=== PATIENT | female | born 1985 | race Caucasian/White ===

== ENCOUNTER 2016-12-01 09:11 | Outpatient (CLI) | payer BC ==
[~2016-12-01] VITALS: Ht 182.9 cm; Wt 100.2 kg
[~2016-12-01 09:11] MED LIST: ACHD5005 PO; BPR150TCR PO; CEPH500C PO; DCS100C PO; FRS325T PO; IBP600T1 PO; IBP800T PO; ONDAN4ODT PO; ONDN4T PO; OXYC1TAB12 PO; PENI500T PO; PREN1TAB14 PO
[2016-12-01] MEDS ORDERED: LEVO50TA6 PO (09:26)
[2016-12-03] MEDS ORDERED: OXYC-202 PO (12:12)
== END 2016-12-01 09:33 ==
LOC: PREOP 09:11
PROVIDERS: ATTEND Obstetrics & Gynecology
DX: Z01.818 Encounter for other preprocedural examination (principal); N93.8 Other specified abnormal uterine and vaginal bleeding; D64.9 Anemia, unspecified

== ENCOUNTER 2016-12-03 12:01 | Day surgery (SDC) | payer BC ==
[~2016-12-03] VITALS: Ht 182.9 cm; Wt 100.2 kg
[~2016-12-03 12:01] MED LIST changes: +LEVO50TA6 PO
[2016-12-03] MEDS ORDERED: D5 LR IV SOLUTION 1,000 ML IV SCH (12:09)
[2016-12-03] MEDS ORDERED: OXYC-202 PO (12:12)
--- NOTE | 2016-12-03 12:13 | Discharge Instructions ---
Discharge Instructions Discharge Medications New, Converted or Re-Newed RX: RX on Chart Patient Instructions Patient Instructions: as directed Return to The Hospital For: as directed Activity & Diet Discharge Diet: No Restrictions Orders-Post D/C & Referrals Follow Up Appt: Call to make follow up appt. for patient in 2 weeks. Activity: Rest for 24 hours, than as tolerated. Diet: As tolerated-Clear Liquids only if nauseated. May shower or tub bathe as desired. No driving for 24 hours, no alcoholic beverages for 24 hours, and nothing per vagina (no tampons, douching, or intercoUrse) for 2 weeks. Patient to return to the clinic as soon as possible for: Temperature greater than 101F, Severe Pain, Foul discharge from incision or vagina, Excessive Bleeding (more than a period). BETHANY ABRAMS MD Dec 03, 2016 12:13
--- NOTE | 2016-12-03 12:14 | Progress Note-Post Operative ---
Post-Operative Progess Note Surgeon (s)/Magazine Hand (s) Surgeon BETHANY ABRAMS MD Magazine Hand: Raegan Palmer Pre-Operative Diagnosis DUB/menorrhagia Post-Operative Diagnosis same with endometrial polyps and with pathology pending Procedure & Operative Findings Date of Procedure 12/03/16 Procedure Performed/Findings hysteroscopy with directed biopsy and D&C Anesthesia Type GETA Estimated Blood Loss Estimated blood loss (mL): less than 50 mL Specimens/Packing Specimens Removed directed endometrial biopsy and endometrial curettings Packing: none BETHANY ABRAMS MD Dec 03, 2016 12:14
[2016-12-03] MEDS ORDERED: fentaNYL INJECTION 100 MCG/2 ML AMP IVP PRN (12:15)
[2016-12-03] MEDS ORDERED: oxyCODONE/APAP 10/325MG (PERCOCET 10) TABLET PO PRN (12:15)
[2016-12-03] MEDS ORDERED: ESTROGENS CONJ IV 25 MG/5 ML (PREMARIN) VIAL IVP ONE (12:15)
[2016-12-03] MEDS ORDERED: ONDANSETRON 4 MG/2 ML (SDV) Z0FRAN IVP PRN ×2 (12:15→15:15)
[2016-12-03] MEDS ORDERED: KETOROLAC 30 MG/ML VIAL IVP ONE (12:15)
[2016-12-03] MEDS ORDERED: LACTATED RINGERS 1,000 ML IV PRN (12:39)
[2016-12-03] MEDS ORDERED: ceFAZolin 1 GM/NS 50 ML IVPB IV ONE ×2 (12:45)
[2016-12-03] MEDS ORDERED: CATHETER FLUSH 10 ML SYR IV PRN (12:45)
[2016-12-03 12:54] LABS: MEAN PLATELET VOLUME 11.2 FL (7.4-10.4); RED BLOOD COUNT 4.19 10^6/uL (4.35-5.85); RED CELL DISTRIBUTION WIDTH 14.8 % (10.0-14.5); WHITE BLOOD COUNT 5.1 10^3/uL (4.3-11.0)
[2016-12-03 13:00] VITALS: BP 108/71
[2016-12-03] MEDS ORDERED: MIDAZOLAM 2 MG/2 ML (VERSED) VIAL ONE (13:51)
[2016-12-03] MEDS ORDERED: DEXAMETHASONE 10 MG/ML (DECADRON) 1 ML VIAL ONE (13:51)
[2016-12-03] MEDS ORDERED: proPOfol 200 MG/20 ML (DIPRIVAN) VIAL IV ONE (13:51)
[2016-12-03] MEDS ORDERED: SEVOFLURANE (ULTANE) 15 ML INHAL SOLN ONE (13:51)
[2016-12-03] MEDS ORDERED: LIDOCAINE PF 2% 5 ML (XYLOCAINE) VIAL ONE (13:51)
[2016-12-03] MEDS ORDERED: ONDANSETRON 4 MG/2 ML (SDV) Z0FRAN ONE ×2 (13:51→14:11)
[2016-12-03] MEDS ORDERED: LACTATED RINGERS 1,000 ML IV ONE (13:51)
[2016-12-03] MEDS ORDERED: fentaNYL INJECTION 100 MCG/2 ML AMP ONE (13:52)
[2016-12-03] MEDS ORDERED: ESTROGENS CONJ IV 25 MG/5 ML (PREMARIN) VIAL ONE (14:11)
[2016-12-03] MEDS ORDERED: morphine INJ 10 MG/ML 1ML (SYR OR VIAL) ONE (14:11)
[2016-12-03] MEDS ORDERED: WATER (STERILE) FOR INJECTION 10 ML ONE (14:11)
[2016-12-03] MEDS ORDERED: KETOROLAC 30 MG/ML VIAL ONE (14:11)
--- NOTE | 2016-12-03 14:41 | Progress Note-Pre Operative ---
Pre-Operative Progress Note H&P Reviewed The H&P was reviewed, patient examined and no changes noted. Date Seen by Provider: Dec 03, 2016 Time Seen by Provider: 14:41 Date H&P Reviewed: Dec 03, 2016 Time H&P Reviewed: 14:41 Pre-Operative Diagnosis: menorrhagia/DUB/intrauterine mass BETHANY ABRAMS MD Dec 03, 2016 2:41 pm
[2016-12-03] MEDS ORDERED: morphine INJ 10 MG/ML 1ML (SYR OR VIAL) IVP PRN (15:15)
[2016-12-03] MEDS ORDERED: MEPERIDINE (DEMEROL) INJ 50 MG/ML IVP PRN (15:15)
[2016-12-03] MEDS ORDERED: MEPERIDINE (DEMEROL) INJ 50 MG/ML ONE (15:16)
[2016-12-03 16:15] VITALS: BP 108/79
[2016-12-03 16:45] VITALS: BP 93/66
[2016-12-03 17:13] VITALS: BP 112/76
--- NOTE | 2016-12-04 07:34 | OPERATIVE REPORT ---
DATE OF SERVICE: 12/03/2016 PREOPERATIVE DIAGNOSIS: Dysfunctional uterine bleeding with ultrasound finding of intrauterine mass. POSTOPERATIVE DIAGNOSIS: Dysfunctional uterine bleeding with ultrasound finding of intrauterine mass. OPERATIVE PROCEDURE: Hysteroscopy with directed biopsy and D and C. SURGEON: Dr. Bethany Cabrera OPERATIVE DESCRIPTION: With the patient in the supine position under satisfactory general anesthesia, she was repositioned in the dorsal lithotomy position in the [facility] and prepped and draped in the usual fashion for vaginal surgery. The urinary bladder was emptied with a straight catheter. A weighted speculum placed on the posterior fornix in the vagina. Cervix exposed and grasped anteriorly with a single tooth tenaculum. There was an IUD string present at the cervical os. The patient had a copper T IUD in place. This was removed gently. The uterus was then sounded to 9.5 cm uterus down to cervix. Then serially dilated with Koffi dilators to accommodate a hysteroscope which was introduced. Then using LR as a distending medium, the endometrial cavity was examined. There were numerous polypoid masses, call center representative biopsy was taken by removal of one of the larger of the specimens. That was sent to pathology as directed biopsy of polypoid intrauterine mass. The endometrial cavity was then sharply curettaged in all 4 quadrants to good uterine cry with removal of a fairly moderate amount of tissue. The hysteroscope was reintroduced. There was still some tissue remaining. This was removed by repeating the curettage. The hysteroscope was reintroduced. The endometrial cavity was examined and there was no remaining abnormal pathology. There was no significant bleeding. The hysteroscope was removed. The copper T IUD was washed in sterile saline, was positioned in an introducer and then the IUD replaced in the endometrial cavity in the usual manner. The IUD strings were approximately 1 cm in length after placement of the IUD. The tenaculum was removed from the cervix. There was some bleeding from one of the puncture sites. This was touched with silver nitrate to effect hemostasis. With hemostasis assured, sponge and needle counts correct and no bleeding the procedure was terminated. Estimated blood loss was minimal. The patient tolerated the procedure well and was uneventfully awakened from general anesthesia and transferred to recovery room in stable condition with plans for discharge home PAR. A total of 700 mL of distending medium was used, 600 mL was recovered and another almost 100 mL was noted on the floor. The patient was transferred to the recovery room in stable condition. Job ID: [id number] DocumentID: [id number] Dictated Date: 12/03/2016 15:18:58 Public Relations Representative Date: 12/04/2016 07:34:23 Dictated By: BETHANY CABRERA MD
== END 2016-12-03 17:13 | disposition home or self-care (01) ==
LOC: SDC 12:01
PROVIDERS: ATTEND Obstetrics & Gynecology
DX: N93.8 Other specified abnormal uterine and vaginal bleeding (principal); E03.9 Hypothyroidism, unspecified; Z79.899 Other long term (current) drug therapy
CPT/HCPCS: 36415; 84703; 85027; 87081

== ENCOUNTER 2018-10-07 20:01 | Outpatient (CLI) | payer BC | END 2018-10-08 06:46 | disposition home or self-care (01) | LOC: SLEEP 20:01 | DX: G47.10 Hypersomnia, unspecified (principal); G47.36 Sleep related hypoventilation in conditions classified elsewhere; R51 Headache | CPT/HCPCS: 95810 ==

== ENCOUNTER → 2019-06-12 | Outpatient (CLI) | payer BC ==
--- NOTE | 2019-06-12 12:59 | Diagnostic Imaging Report ---
PROCEDURE: US Thyroid. TECHNIQUE: Multiple real-time grayscale images were obtained of the thyroid in various projections. INDICATION: Nodule There are no prior studies available for comparison Within the left lobe of the thyroid there is a 3.5 x 2.8 x 2.6 cm fairly well-circumscribed hypoechoic mass with punctate areas of echogenicity. There are also septations within this lesion. This lesion is not clearly taller than it is wide. There may be punctate calcifications within this lesion. I would rate this is a TI-RADS 4. I would recommend an ultrasound-guided biopsy be performed. There is also a subcentimeter 0.0 x 0.0 x 0.6 cm hypoechoic lesion along the posterior aspect of the right lobe of the thyroid. It is possible that this could represent a parathyroid adenoma. If there is clinical concern regarding a parathyroid adenoma, then a nuclear medicine parathyroid scan would be recommended. There is no other focal mass involving the thyroid gland. The thyroid gland is enlarged with the right lobe measuring 5.2 x 2.1 x 1.9 cm, left lobe estimated 5.6 x 3.0 x 2.8 cm (normal gland size 4-5 x 2 x 2 cm or less). IMPRESSION: 1. There is a 3.5 x 2.8 x 2.6 cm complex hypoechoic nodule in the left lobe of the thyroid. This has a TI-RADS category 4. This finding is of uncertain etiology but worrisome for malignancy. Ultrasound-guided biopsy would be recommended. 2. The small hypoechoic nodule along the posterior aspect of the right lobe of thyroid could represent a parathyroid adenoma. Additional considerations as above. 3. The thyroid gland is enlarged. Dictated by: Dictated on workstation # [id number]
== END ==
LOC: RAD 10:22
PROVIDERS: ATTEND Obstetrics & Gynecology
DX: E04.1 Nontoxic single thyroid nodule (principal)
CPT/HCPCS: 76536

== ENCOUNTER → 2019-07-12 | Outpatient (CLI) | payer BC | LOC: CARD 10:35 | PROVIDERS: ATTEND Obstetrics & Gynecology | DX: E04.1 Nontoxic single thyroid nodule (principal) ==

== ENCOUNTER → 2019-08-06 | Outpatient (CLI) | payer BC ==
[~2019-08-06] VITALS: Ht 182.9 cm; Wt 100.0 kg
[~2019-08-06] MED LIST changes: +LIDOCAINE 1% INJ 20 ML 20 ML VIAL INJ ONE; +LIDOCAINE 1% INJ 20 ML 20 ML VIAL ONE
--- NOTE | 2019-08-06 09:32 | Diagnostic Imaging Report ---
INDICATION: Left thyroid nodule. Patient presents for ultrasound-guided fine needle aspiration. FINDINGS: Patient was brought to the procedure room and placed on the table in the supine position. The skin of the left neck was prepped and draped in usual sterile fashion. Ultrasound imaging over the left neck was performed to evaluate appropriate entry site. A 25-gauge needle was advanced into the mixed complex cystic and solid mass left lobe of thyroid. Complex fluid was aspirated. Approximately 2 mL of yellowish fluid was removed. This will be sent to cytology. Then, 3 additional passes were made with 25-gauge needles in place with its tips along the more solid margins of the lesion and finally needle aspiration was performed. The needle was removed and hemostasis was obtained. Patient tolerated the procedure well and left the department in stable condition. IMPRESSION: Left thyroid nodule fluid aspiration as well as fine needle aspiration, utilizing sonographic guidance. Pathology results are currently pending. Dictated by: Dictated on workstation # [id number]
== END ==
LOC: RAD 08:19
PROVIDERS: ATTEND Otolaryngology Otolaryngology/Facial Plastic Surgery
DX: E04.1 Nontoxic single thyroid nodule (principal)

== ENCOUNTER → 2020-01-11 | Outpatient (CLI) | payer BC ==
[~2020-01-11] MED LIST changes: -LIDOCAINE 1% INJ 20 ML 20 ML VIAL INJ ONE; -LIDOCAINE 1% INJ 20 ML 20 ML VIAL ONE
--- NOTE | 2020-01-11 09:30 | Diagnostic Imaging Report ---
PROCEDURE: US Thyroid. TECHNIQUE: Multiple real-time grayscale images were obtained of the thyroid in various projections. INDICATION: Thyroid nodule, follow-up. Correlation is made with prior thyroid ultrasound from 06/12/2019. Right lobe of thyroid measures 5.3 x 1.7 x 1.6 cm and left lobe measures 5.6 x 3.0 x 3.1 cm. Isthmus is 4 mm in thickness. Both thyroid lobes are heterogeneous. Probable parathyroid nodule on the right previously seen measures 6 mm x 7 mm x 7 mm compared with 8 mm x 8 mm x 6 mm on prior. The complex mixed cystic and solid mass left lobe of the thyroid measures 3.4 x 3.0 x 2.8 cm. This compares with 3.5 x 2.8 x 2.6 cm on prior exam. No new thyroid mass is detected. IMPRESSION: Stable thyroid ultrasound when compared with exam from 06/12/2019. Dictated by: Dictated on workstation # [id number]
== END ==
LOC: RAD 08:00
PROVIDERS: ATTEND Otolaryngology Otolaryngology/Facial Plastic Surgery
DX: E04.1 Nontoxic single thyroid nodule (principal)
CPT/HCPCS: 76536

== ENCOUNTER 2020-10-22 13:08 | Outpatient (RCR) | payer BC ==
[2020-10-13 12:49] VITALS: BP 116/82
[2020-10-13] MEDS: IRON SUCROSE 200 MG/10 ML (VENOFER) VIAL IV SCH (13:29)
[2020-10-15 13:00] VITALS: BP 98/72
[2020-10-15] MEDS: IRON SUCROSE 200 MG/10 ML (VENOFER) VIAL IV SCH (13:39)
[2020-10-17] MEDS: IRON SUCROSE 200 MG/10 ML (VENOFER) VIAL IV SCH (08:57)
[2020-10-17 09:45] VITALS: BP 99/67
[2020-10-20] MEDS: IRON SUCROSE 200 MG/10 ML (VENOFER) VIAL IV SCH (13:30)
[2020-10-20 14:08] VITALS: BP 110/87
[~2020-10-22] VITALS: Ht 172 cm; Wt 100.0 kg
[2020-10-22 13:25] VITALS: BP 122/73
[2020-10-22] MEDS: IRON SUCROSE 200 MG/10 ML (VENOFER) VIAL IV SCH (13:31)
[2021-01-09] MEDS ORDERED: MONT10TA32 PO (11:48)
[2021-01-09] MEDS ORDERED: PANT40TA52 PO (11:48)
[2021-01-09] MEDS ORDERED: ALPR0.5T7 PO (11:48)
[2021-01-09] MEDS ORDERED: LISD50CA PO (11:48)
[2021-01-09] MEDS ORDERED: LEVO1CAP8 PO (11:48)
[2021-01-09] MEDS ORDERED: BUPR300T98 PO (11:48)
== END 2021-01-11 | disposition home or self-care (01) ==
LOC: SDC 13:08
PROVIDERS: ATTEND Nurse Practitioner Family
DX: D50.9 Iron deficiency anemia, unspecified (principal)
CPT/HCPCS: 96365

== ENCOUNTER 2021-01-09 06:35 | Outpatient (CLI) | payer BC ==
[~2021-01-09] VITALS: Ht 182.9 cm; Wt 104.1 kg
[2021-01-09] MEDS ORDERED: MONT10TA32 PO (11:48)
[2021-01-09] MEDS ORDERED: PANT40TA52 PO (11:48)
[2021-01-09] MEDS ORDERED: BUPR300T98 PO (11:48)
[2021-01-09] MEDS ORDERED: LISD50CA PO (11:48)
[2021-01-09] MEDS ORDERED: ALPR0.5T7 PO (11:48)
[2021-01-09] MEDS ORDERED: LEVO1CAP8 PO (11:48)
== END 2021-01-09 11:52 | disposition home or self-care (01) ==
LOC: PREOP 06:35
PROVIDERS: ATTEND Obstetrics & Gynecology
DX: Z01.818 Encounter for other preprocedural examination (principal)

== ENCOUNTER 2021-01-16 08:43 | Day surgery (SDC) | payer BC ==
[2021-01-16] VITALS (11 sets, daily range): BP systolic 106–135; BP diastolic 65–96
[~2021-01-16] VITALS: Ht 182.9 cm; Wt 104.1 kg
--- NOTE | 2021-01-16 07:31 | Progress Note-Pre Operative ---
Pre-Operative Progress Note H&P Reviewed The H&P was reviewed, patient examined and no changes noted. Date Seen by Provider: Jan 16, 2021 Time Seen by Provider: 09:00 Date H&P Reviewed: Jan 16, 2021 Time H&P Reviewed: 09:00 Pre-Operative Diagnosis: menorrhagia BETHANY ABRAMS MD Jan 16, 2021 07:31
--- NOTE | 2021-01-16 07:32 | Progress Note-Post Operative ---
Post-Operative Progess Note Surgeon (s)/Lay Health Advocate (s) Surgeon BETHANY ABRAMS MD Lay Health Advocate: Brien Palmer Pre-Operative Diagnosis DUB/menorrhagia Post-Operative Diagnosis Same Procedure & Operative Findings Date of Procedure 01/16/21 Procedure Performed/Findings Total laparoscopic hysterectomy with bilateral salpingectomy Anesthesia Type General Estimated Blood Loss Estimated blood loss (mL): min Specimens/Packing Specimens Removed Uterus and fallopian tubes BETHANY ABRAMS MD Jan 16, 2021 07:32
--- NOTE | 2021-01-16 07:37 | Discharge Inst-Surgical ---
Discharge Inst-Surgical Depart Medication/Instructions New, Converted or Re-Newed RX: RX on Chart Consults/Follow Up Patient Instructions: As directed Orders & Referrals Follow Up Appt: Return to clinic on Tuesday, January 19, 2021 at 9:30 AM for staple removal Call to make follow up appt. for patient For postop appointment prior to February 06, 2021. Activity: Rest for 24 hours, than as tolerated. Wound Care: May remove Band-Aid tomorrow. Replace as desired. Keep incisions clean and dry. Wash daily with soap and water. Diet: As tolerated may shower or tub bathe as desired. No driving for 24 hours, no alcoholic beverages for 24 hours, and nothing per vagina (no tampons, douching, or intercourse) for 8 weeks. Patient to return to the clinic as soon as possible for: Temperature greater than 101F, Severe Pain, Foul discharge from incision or vagina, Excessive Bleeding (more than a period). Activity Activity as Tolerated: No Diet Discharge Diet: No Restrictions BETHANY ABRAMS MD Jan 16, 2021 07:37
[~2021-01-16 08:43] MED LIST changes: +ALPR0.5T7 PO; +BUPR300T98 PO; +D5 LR IV SOLUTION 1,000 ML IV SCH; +DOCU-143 PO; +IBUP-1780 PO; +KETOROLAC 30 MG/ML VIAL IVP SCH; +LEVO1CAP8 PO; +LISD50CA PO; +MONT10TA32 PO; +ONDANSETRON 4 MG/2 ML (SDV) Z0FRAN IVP PRN; +OXYC1TAB87 PO; +PANT40TA52 PO; +PROMETHAZINE INJ 25 MG/ML (PHENERGAN) AMP IM PRN; +fentaNYL INJ 100 MCG/2 ML AMP IVP PRN; +oxyCODONE/APAP 5/325MG (PERCOCET 5) TABLET PO PRN
[2021-01-16] MEDS ORDERED: DOCUSATE SODIUM 100 MG (COLACE) CAP PO SCH (09:00)
[2021-01-16] MEDS: LACTATED RINGERS 1,000 ML IV PRN ×2 (09:32→12:56)
[2021-01-16] MEDS ORDERED: ceFAZolin INJECTION 1,000 MG ONE (09:39)
[2021-01-16 09:41] LABS: BASOPHILS # (AUTO) 0.1 10^3/uL (0.0-0.1); BASOPHILS % (AUTO) 1 % (0-10); EOSINOPHILS # (AUTO) 0.1 10^3/uL (0.0-0.3); EOSINOPHILS % (AUTO) 2 % (0-10); HEMATOCRIT 37 % (35-52); LYMPHOCYTES # (AUTO) 1.6 10^3/uL (1.0-4.0); LYMPHOCYTES % (AUTO) 22 % (12-44); MEAN CORPUSCULAR HEMOGLOBIN 30 pg (25-34); MEAN CORPUSCULAR HGB CONC 32 g/dL (32-36); MEAN CORPUSCULAR VOLUME 92 fL (80-99); MEAN PLATELET VOLUME 10.3 fL (9.0-12.2); MONOCYTES # (AUTO) 0.6 10^3/uL (0.0-1.0); MONOCYTES % (AUTO) 8 % (0-12); NEUTROPHILS % (AUTO) 67 % (42-75); PLATELET COUNT 271 10^3/uL (130-400); WHITE BLOOD COUNT 7.4 10^3/uL (4.3-11.0)
[2021-01-16] MEDS ORDERED: WATER (STERILE) FOR INJECTION 10 ML ONE (09:44)
[2021-01-16] MEDS ORDERED: ceFAZolin INJECTION 1,000 MG in WATER (STERILE) FOR INJECTION 10 ML IV ONE (09:45)
[2021-01-16] MEDS ORDERED: LIDOCAINE/EPI 1%-1:100,000 (XYLOCAINE) 20ML ONE (10:52)
[2021-01-16] MEDS ORDERED: proPOfol 200 MG/20 ML (DIPRIVAN) VIAL IV ONE (12:13)
[2021-01-16] MEDS ORDERED: MIDAZOLAM 2 MG/2 ML (VERSED) VIAL ONE (12:13)
[2021-01-16] MEDS ORDERED: LIDOCAINE PF 2% 5 ML (XYLOCAINE) VIAL ONE (12:13)
[2021-01-16] MEDS ORDERED: ONDANSETRON 4 MG/2 ML (SDV) Z0FRAN ONE (12:13)
[2021-01-16] MEDS ORDERED: SEVOFLURANE (ULTANE) 15 ML INHAL SOLN ONE ×2 (12:13→13:13)
[2021-01-16] MEDS ORDERED: fentaNYL INJ 100 MCG/2 ML AMP ONE ×2 (12:13→12:23)
[2021-01-16] MEDS ORDERED: GLYCOPYRROLATE 0.2 MG/ML (ROBINUL) 2 ML VIAL ONE (13:36)
[2021-01-16] MEDS ORDERED: NEOSTIGMINE 3 MG/3 ML VIAL ONE (13:36)
[2021-01-16] MEDS ORDERED: ONDANSETRON 4 MG/2 ML (SDV) Z0FRAN IVP PRN (14:00)
[2021-01-16] MEDS ORDERED: fentaNYL INJ 100 MCG/2 ML AMP IVP ONE (14:00)
[2021-01-16] MEDS ORDERED: morphine INJ 10 MG/ML 1ML (SYR OR VIAL) IVP ONE (14:00)
[2021-01-16] MEDS ORDERED: MEPERIDINE (DEMEROL) INJ 50 MG/ML IVP ONE (14:00)
[2021-01-16] MEDS ORDERED: KETOROLAC 30 MG/ML VIAL ONE (14:25)
[2021-01-16] MEDS ORDERED: D5 LR IV SOLUTION 1,000 ML IV ONE (15:56)
--- NOTE | 2021-01-16 18:40 | OPERATIVE REPORT ---
DATE OF SERVICE: 01/16/2021 PREOPERATIVE DIAGNOSES: Menorrhagia/abnormal uterine bleeding and endometrial polyps. POSTOPERATIVE DIAGNOSES: Menorrhagia/abnormal uterine bleeding and endometrial polyps. OPERATIVE PROCEDURE: Total laparoscopic hysterectomy with bilateral salpingectomy. OPERATIVE DESCRIPTION: With the patient in the supine position under satisfactory general anesthesia, she was repositioned in dorsal lithotomy position in the [facility] and prepped and draped in the usual fashion for abdominal and vaginal surgery. Weighted speculum placed in posterior fornix of vagina, cervix exposed and grasped anteriorly with single tooth tenaculum. Uterus sounded to 14 cm with uterine sound. Cervix was then serially dilated with Koffi dilators to accommodate a Kimberley II manipulator was placed using a 6 mm x 8 cm uterine probe and a 30 mm colpotomy ring. Sutures of #1 Vicryl placed at 3 and 9 o'clock position of the cervix to affix the uterus to the manipulator. The tenaculum and speculum were removed. Barry catheter was placed in the urinary bladder and the patient brought in low dorsal lithotomy position. A 12 mm incision was made 10 cm superior to the umbilicus. Veress needle was placed through that incision into the abdominal cavity and correct placement confirmed with water drop test. The abdomen was insufflated with 2.4 liters of carbon dioxide. Then, Veress needle was removed and a 12 mm Optiview laparoscopic port placed. Abdominal wall was transilluminated. Ports of 8 mm were placed 8 cm lateral to the umbilicus at a level approximately 2 cm above the umbilicus. The patient was placed in Trendelenburg allowing the bowel spill out of the pelvis. The da Kolby column was advanced on the patient, docked and operative instrument placed in right and left lateral ports and I retired to the da Kolby console. At the console using the vessel sealer on the right, bipolar fenestrated grasper on the left, the pelvis was first examined. There were extensive adhesions in the left pelvis from the omentum adherent to the terminus of the left pericolic gutter and obstructing access to the left tube and ovary. These were taken down sharply, bluntly and with the vessel sealer. With that freed, the omentum was brought up out of the way and both tubes and ovaries could be inspected. There was a corpus luteal cyst on the left ovary. The right ovary also was normal. Both fallopian tubes were normal. The uterus was large and mottled in appearance. The laparoscope was rotated. The appendix could not be identified due to the extensive coverage of the bowel and omentum. The laparoscope was brought back to the pelvis. The right fallopian tube was grasped and elevated. The mesosalpinx was clamped, cauterized and divided that was continued stepwise across the uteroovarian pedicle was clamped, cauterized and divided in the same manner and the dissection was carried across the round ligament down the broad ligament to the cardinal ligament. Same procedure performed on the left, allowing for conservation of both ovaries and removal of both fallopian tubes. Anterior lower uterine segment peritoneum was divided with monopolar katlin allowing the bladder to be dissected down off the lower uterine segment. Colpotomy incision was started at 12 o'clock position onto the colpotomy ring. That incision was continued circumferentially until the entire colpotomy ring was exposed and then the uterus with the tubes still attached was extracted through the vagina. The vaginal cuff was closed with a single V-Loc barbed suture in the usual manner. Good hemostasis and good reapproximation was achieved. Pelvis was examined for hemostasis. There was a little bit of oozing on the right peritoneal reflection over the dissection. This was touched with cautery to effect hemostasis. With hemostasis assured, both ureters seemed to peristalse. The procedure was terminated. The operative instruments were removed under direct vision as were the ports. The abdomen was evacuated of insufflating gas in the process of removing the ports. The skin incisions were stapled after the fascia at the supraumbilical incision was closed with [id number] suture of 2-0 Vicryl. Sponge and needle counts were correct at this point. Speculum was placed in the vagina. The vaginal cuff was examined. It was completely reapproximated and completely hemostatic. Now again with sponge and needle counts correct, hemostasis assured. Blood loss minimal. The patient was uneventfully awakened from her general anesthesia and transferred to recovery in stable condition. Job ID: [id number] DocumentID: [id number] Dictated Date: 01/16/2021 13:33:12 Asian Art Curator Date: 01/16/2021 18:40:27 Dictated By: BETHANY ABRAMS MD
[2021-01-17] MEDS ORDERED: DOCUSATE SODIUM 100 MG (COLACE) CAP PO SCH (09:00)
--- NOTE | 2021-01-17 09:47 | Anesthesia-General Post-Op ---
General Patient Condition Mental Status/LOC: Same as Preop Cardiovascular: Satisfactory Nausea/Vomiting: Absent Respiratory: Satisfactory Pain: Controlled Complications: Absent Post Op Complications Complications None Follow Up Care/Instructions Patient Instructions None needed. Anesthesia/Patient Condition Patient Condition Patient is doing well, no complaints, stable vital signs, no apparent adverse anesthesia problems. No complications reported per nursing. D/C home per [facility] Criteria: Yes SHAYY SHARP CRNA Jan 17, 2021 09:47
[2021-01-21] MEDS ORDERED: IBUPROFEN 800 MG (MOTRIN) TAB PO SCH (07:45)
== END 2021-01-16 21:30 | disposition home or self-care (01) ==
LOC: SDC 08:43 → WS 15:31 → SDC 21:30
PROVIDERS: ATTEND Obstetrics & Gynecology
DX: N83.12 Corpus luteum cyst of left ovary (principal); N85.8 Other specified noninflammatory disorders of uterus; N83.8 Other noninflammatory disorders of ovary, fallopian tube and broad ligament; K66.0 Peritoneal adhesions (postprocedural) (postinfection); E04.9 Nontoxic goiter, unspecified; F32.A Depression, unspecified; D64.9 Anemia, unspecified; G47.30 Sleep apnea, unspecified; K21.9 Gastro-esophageal reflux disease without esophagitis; Z79.890 Hormone replacement therapy; Z79.899 Other long term (current) drug therapy; Z11.2 Encounter for screening for other bacterial diseases
CPT/HCPCS: 36415; 84703; 85025; 87081; 94664

== ENCOUNTER → 2023-01-28 | Outpatient (CLI) | payer BC ==
[~2023-01-28] VITALS: Ht 182.9 cm; Wt 109.5 kg
[~2023-01-28] MED LIST changes: -D5 LR IV SOLUTION 1,000 ML IV SCH; +IBUP-1773 PO; -KETOROLAC 30 MG/ML VIAL IVP SCH; +MONT-40 PO; -MONT10TA32 PO; -ONDANSETRON 4 MG/2 ML (SDV) Z0FRAN IVP PRN; -PROMETHAZINE INJ 25 MG/ML (PHENERGAN) AMP IM PRN; +VILA10TA2 PO; -fentaNYL INJ 100 MCG/2 ML AMP IVP PRN; -oxyCODONE/APAP 5/325MG (PERCOCET 5) TABLET PO PRN
== END | disposition home or self-care (01) ==
LOC: PREOP 10:00
PROVIDERS: ATTEND Obstetrics & Gynecology
DX: Z01.818 Encounter for other preprocedural examination (principal)

== ENCOUNTER 2023-02-01 09:21 | Day surgery (SDC) | payer BC ==
[~2023-02-01] VITALS: Ht 182.9 cm; Wt 109.5 kg
[2023-02-01] VITALS (11 sets, daily range): BP systolic 103–131; BP diastolic 68–99
[~2023-02-01 09:21] MED LIST changes: -IBUP-1773 PO
[2023-02-01] MEDS ORDERED: BUPIVACAINE 0.25% 30 ML VIAL ONE (09:42)
[2023-02-01] MEDS ORDERED: NS (IVPB) 50 ML 50 ML ONE (10:07)
[2023-02-01] MEDS ORDERED: ceFAZolin INJECTION 1,000 MG ONE (10:07)
[2023-02-01] MEDS ORDERED: BUPIVACAINE 0.25% 30 ML VIAL INJ ONE (10:14)
[2023-02-01] MEDS ORDERED: MIDAZOLAM INJ 2 MG/2 ML VIAL ONE (10:23)
[2023-02-01] MEDS ORDERED: fentaNYL INJECTION 100 MCG/2 ML VIAL ONE (10:23)
--- NOTE | 2023-02-01 10:31 | Progress Note-Pre Operative ---
Pre-Operative Progress Note Date of Available H&P: Feb 01, 2023 Date H&P Reviewed: Feb 01, 2023 Time H&P Reviewed: 10:15 History & Physical: H&P Reviewed, Patient Examed, No changes noted Pre-Operative Diagnosis: Enlarged bartholins gland mass GHADA KINGSLEY DO Feb 01, 2023 10:31
[2023-02-01 10:34] LABS: BASOPHILS # (AUTO) 0.1 10^3/uL (0.0-0.1); BASOPHILS % (AUTO) 1 % (0-10); EOSINOPHILS # (AUTO) 0.2 10^3/uL (0.0-0.3); EOSINOPHILS % (AUTO) 4 % (0-10); HEMATOCRIT 37 % (35-52); HEMOGLOBIN 11.8 g/dL (11.5-16.0); LYMPHOCYTES # (AUTO) 1.6 10^3/uL (1.0-4.0); LYMPHOCYTES % (AUTO) 26 % (12-44); MEAN CORPUSCULAR HEMOGLOBIN 28 pg (25-34); MEAN CORPUSCULAR HGB CONC 32 g/dL (32-36); MEAN CORPUSCULAR VOLUME 87 fL (80-99); MEAN PLATELET VOLUME 10.2 fL (9.0-12.2); MONOCYTES # (AUTO) 0.4 10^3/uL (0.0-1.0); MONOCYTES % (AUTO) 7 % (0-12); NEUTROPHILS # (AUTO) 3.8 10^3/uL (1.8-7.8); NEUTROPHILS % (AUTO) 62 % (42-75); PLATELET COUNT 300 10^3/uL (130-400); WHITE BLOOD COUNT 6.1 10^3/uL (4.3-11.0)
--- NOTE | 2023-02-01 10:34 | Discharge Inst-Women's Service ---
Discharge Inst-Women's Serv Depart Medication/Instructions New, Converted or Re-Newed RX: Transmitted to Pharmacy Problems Reviewed?: Yes Consults/Follow Up Additional Follow Up: Yes Orders/Referrals Dr. Kingsley in 2 weeks Activity Activity: Activity as Tolerated Driving Instructions: No Driving for 1 Week NO SMOKING: NO SMOKING Nothing Inside Vagina: No Douching, No [place], No Tampons Diet Discharge Diet: No Restrictions Symptoms to Report to : Swelling Increased, Pain Increased, Fever Over 101 Degrees F, Vaginal Bleeding Increase, Questions/Concerns For Any Problems or Questions: Contact Your Physician GHADA KINGSLEY DO Feb 01, 2023 10:34
[2023-02-01] MEDS ORDERED: ACHD5005 PO (10:35)
[2023-02-01] MEDS ORDERED: DOCU-143 PO (10:35)
[2023-02-01] MEDS ORDERED: IBUP-1773 PO (10:35)
[2023-02-01] MEDS ORDERED: ONDANSETRON INJECTION 4 MG/2 ML (SDV) IVP PRN (10:45)
[2023-02-01] MEDS ORDERED: HYDROcodone/ACETAMINOPHEN 5 MG/325 MG TABLET PO PRN (10:45)
[2023-02-01] MEDS ORDERED: KETOROLAC INJ 30 MG/ML VIAL IVP ONE (10:45)
[2023-02-01] MEDS ORDERED: LACTATED RINGERS 1,000 ML 1,000 ML IV PRN (10:45)
[2023-02-01] MEDS ORDERED: D5 LR 1,000 ML IV SOLN 1,000 ML IV SCH (10:45)
[2023-02-01] MEDS ORDERED: ceFAZolin INJECTION 1,000 MG in NS (IVPB) 50 ML 50 ML IV ONE (10:45)
[2023-02-01] MEDS ORDERED: SEVOFLURANE (ULTANE) 15 ML INHAL SOLN ONE (11:06)
[2023-02-01] MEDS ORDERED: ONDANSETRON INJECTION 4 MG/2 ML (SDV) ONE (11:06)
[2023-02-01] MEDS ORDERED: proPOfol INJECTION 200 MG/20 ML VIAL IV ONE (11:06)
[2023-02-01] MEDS ORDERED: KETOROLAC INJ 30 MG/ML VIAL ONE (11:06)
[2023-02-01] MEDS ORDERED: LIDOCAINE PF 2% 5 ML VIAL ONE (11:06)
[2023-02-01] MEDS ORDERED: dexAMETHasone INJ 10 MG/ML 1 ML VIAL ONE (11:12)
[2023-02-01] MEDS ORDERED: fentaNYL INJECTION 100 MCG/2 ML VIAL IVP ONE (11:30)
[2023-02-01] MEDS ORDERED: morphine INJ 10 MG/ML 1ML (SYR OR VIAL) IVP ONE (11:30)
--- NOTE | 2023-02-01 11:31 | Anesthesia-General Post-Op ---
General Patient Condition Mental Status/LOC: Same as Preop Cardiovascular: Satisfactory Nausea/Vomiting: Absent Respiratory: Satisfactory Pain: Controlled Complications: Absent Post Op Complications Complications None Follow Up Care/Instructions Patient Instructions None needed. Anesthesia/Patient Condition Patient Condition Patient is doing well, no complaints, stable vital signs, no apparent adverse anesthesia problems. No complications reported per nursing. NASIR NOVOA CRNA Feb 01, 2023 11:31
[2023-02-01] MEDS ORDERED: HYDROcodone/ACETAMINOPHEN 5 MG/325 MG TABLET ONE (12:25)
--- NOTE | 2023-02-01 21:51 | OPERATIVE REPORT ---
DATE OF SERVICE: 02/01/2023 PREOPERATIVE DIAGNOSES: A 37-year-old female with left Bartholin's cyst. POSTOPERATIVE DIAGNOSES: A 37-year-old female with left Bartholin's cyst. PROCEDURE: Marsupialization of left Bartholin gland. SURGEON: Asim Dolan DO ANESTHESIA: LMA general. EBL: 50 mL. URINE OUTPUT: 100 mL drained at the end of the procedure. FLUIDS: 800 mL lactated Ringer's solution. FINDINGS: A large left Bartholin's gland that was filled with old blood clot and dark brown thick material. SPECIMEN SENT: Bartholin gland cyst wall. INDICATIONS FOR PROCEDURE: This patient was a referral to my office from [facility] for a left-sided Bartholin gland. They had attempted to lancet and open up in the office without any success. I discussed with the patient in the office excision or marsupialization of the gland itself. After that was fluid filled or not a solid mass so we could empty the cyst open and perform what was called a marsupialization, which we definitively solve the problem of the Bartholin's gland cyst recurrence and alleviate her symptoms as it heal. Risk of procedure discussed with the patient in detail including risk of anesthesia and postoperative recovery timeframe and expectations. Everything was discussed with the patient in detail. She was agreeable to proceed. Consent was obtained. The patient was taken to the operating room. OPERATIVE DESCRIPTION IN DETAIL: Once in the operating room, anesthesia was administered and found to be adequate, was placed in dorsal lithotomy position, prepped and draped in normal sterile fashion. A timeout was performed. Anesthesia was tested. I then injected the subcutaneous tissue around the Bartholin's cyst using 2% lidocaine with epinephrine. I make an elliptical incision approximately 3 cm long around the mucocutaneous junction margin of the Bartholin's gland cyst. In the process of doing this, I opened up the cyst wall and excised that elliptical incision margin of the cyst wall as well. I then used 3-0 Vicryl suture in interrupted fashion and sutured to the cyst wall open to the cutaneous border. This was done circumferentially around the entire opening after which, any bleeding was made hemostatic using a Bovie cautery. At the end of the procedure, there was no active bleeding noted. Lap and sponge counts were correct at the end of the procedure. Instrument counts correct as well. The patient tolerated the procedure well and was taken to recovery in stable condition. Job ID: [id number] DocumentID: [id number] Dictated Date: 02/01/2023 12:14:43 Biometrician Date: 02/01/2023 21:49:00 Dictated By: DO JONAS KUNZ
== END 2023-02-01 13:15 | disposition home or self-care (01) ==
LOC: SDC 09:21
PROVIDERS: ATTEND Obstetrics & Gynecology
DX: N75.0 Cyst of Bartholin's gland (principal); G47.33 Obstructive sleep apnea (adult) (pediatric); E66.9 Obesity, unspecified; N90.89 Other specified noninflammatory disorders of vulva and perineum; Z68.33 Body mass index [BMI] 33.0-33.9, adult
CPT/HCPCS: 36415; 85025; 86850; 86900; 86901; 87081